=== PATIENT | male | born 1965 | race Caucasian/White ===

== ENCOUNTER 2017-03-01 07:24 | Day surgery (SDC) | payer OTHER ==
[~2017-03-01 07:24] MED LIST: LIDOCAINE HCL 1% MPF SOL ONE; PROPOFOL 500 MG/50 ML EMU IV ONE
[2017-03-01] MEDS ORDERED: PROPOFOL 10 MG/ML EMU IV ONE (09:18)
[2017-03-01 09:56] VITALS: BP 139/84; PULSE 56; RESP 18; TEMP 96.6; O2SAT 100
== END 2017-03-01 10:26 | disposition home or self-care (01) | DRG 951 ==
LOC: SURG 07:24
PROVIDERS: ATTEND Surgery
DX: Z12.11 Encounter for screening for malignant neoplasm of colon (principal); K25.9 Gastric ulcer, unspecified as acute or chronic, without hemorrhage or perforation; Z86.010 Personal history of colon polyps; Z80.0 Family history of malignant neoplasm of digestive organs; K57.30 Diverticulosis of large intestine without perforation or abscess without bleeding; R10.13 Epigastric pain; R10.11 Right upper quadrant pain; R11.2 Nausea with vomiting, unspecified
CPT/HCPCS: 99001; J2001; J2704